=== PATIENT | male | born 1980 | race Caucasian/White ===

== ENCOUNTER 2016-09-29 16:39 | Emergency (ER) | payer OTHER ==
[~2016-09-29] VITALS: Ht 175.3 cm; Wt 95.5 kg
[~2016-09-29 16:39] MED LIST: OXYC1TAB3 PO
[2016-09-29 16:48] VITALS: TEMP 37; Ht 175.3 cm; Wt 95.5 kg
[2016-09-29] MEDS ORDERED: CEPH500C PO (18:17)
--- NOTE | 2016-09-29 18:22 | EMERGENCY ROOM VISIT NOTE ---
History First contact with patient: 18:05 Chief Complaint: KNEEPAIN Stated Complaint: POST-OP 09-23,RT KNEE PAIN History of Present Illness The patient is a 36 year old male who presents to the Emergency Room with complaints of right knee pain and swelling. The patient reports that he underwent arthroscopic knee surgery [address] Worrell. He does not know what was performed during this procedure. The patient reports that he has noticed increasing swelling and pain of the knee. He was not provided crutches , and has been doing a lot of walking as a. He did call [facility] , and was encouraged to wait until Thursday for his regular appointment when sutures are to be removed. The patient was concerned about the swelling and pain, and elected to come to the emergency department instead. He rates his discomfort a 7 out of 10. He denies any fevers or chills. Review of Systems 10 system review was performed and was negative except for pertinent positives and negatives as indicated in history of present illness Past Medical/Surgical History Medical Problems: (1) Knee pain (2) Paronychia (3) Right knee injury Surgical Problems: (1) H/O knee surgery (2) H/O shoulder surgery Family History Diabetes mellitus Gallbladder disease Social History Smoking Status: Never Smoker Alcohol Use: occasionally Drug Use: none Marital Status: Housing Status: lives with family Occupation Status: unemployed Current/Historical Medications Scheduled Cephalexin Monohydrate (Keflex), 500 MG PO TID Scheduled PRN Oxycodone Immediate Rel Tab (Roxicodone Ir), 1 TAB PO QID PRN for Severe Pain Allergies Coded Allergies: No Known Allergies (Verified , 05/04/16) Physical Exam Vital Signs Date Time Temp Pulse Resp B/P Pulse Ox O2 Delivery O2 Flow Rate FiO2 09/29/16 16:48 37.0 102 18 131/86 97 Room Air Physical Exam CONSTITUTIONAL: Healthy and well nourished. Alert and oriented X 3 with positive affect. HEENT: Normocephalic, atraumatic. Pupils equal, round and reactive. NECK: Full active range of motion without discomfort. RESPIRATORY: Clear to auscultation bilaterally with no wheezing, crackles, rhonchi or stridor. CARDIOVASCULAR: Regular rate and rhythm with no murmurs, rubs or gallops. MUSCULOSKELETAL: Examination of the right knee does not show any increased erythema. Mild joint effusion is noted. There is minimal increased warmth to palpation, typical for postoperative presentation. No popliteal masses or tenderness to palpation of the calf or hamstrings. Pedal pulses are intact. INTEGUMENTARY: No rash or other significant dermatologic conditions noted. NEUROLOGIC: No focal neurologic deficits noted. Right lower extremity is sensory intact. Medical Decision & Procedures ED Course Patient history and physical exam were performed. Nurse's notes were reviewed. The patient is currently afebrile. The patient was advised that his exam is consistent with normal postoperative swelling and pain. The patient was dispensed crutches to keep weight off of the leg. He was encouraged to continue with his [place] pain medications that were prescribed by his orthopedic surgeon. And elevation for swelling and pain. I did elect to cover the patient with Keflex antibiotics as well. He was instructed to follow-up with [facility] on Thursday as scheduled, or utilize their walk-in clinic between 5-7 pm. The patient was happy with plan of care, voiced understanding of all discharge instructions, and rated his pain a 5 out of 10 at the time of discharge. Medical Decision Impression Primary Impression: Postoperative pain of right knee Departure Information Dispostion Home / Self-Care Prescriptions Cephalexin Monohydrate (Keflex) 500 Mg Cap 500 MG PO TID for 7 Days, #21 CAP Prov: Mo Bullard PA 09/29/16 Forms HOME CARE DOCUMENTATION FORM, IMPORTANT VISIT INFORMATION Patient Instructions My [facility] [place] [facility] Additional Instructions Intermittently apply ice and elevate the knee for swelling and pain. Use crutches to minimize weight on the leg. Continue with your home pain medications as prescribed by your surgeon. Follow-up with your surgeon on Thursday as scheduled. If you feel that her symptoms are worsening, suggest going to their walk-in clinic between 5 and 7 PM. Complete all Keflex antibiotics as prescribed.
[2016-09-29 18:36] VITALS: BP 125/81; PULSE 93; O2SAT 96
== END 2016-09-29 18:38 | disposition home or self-care (01) ==
LOC: C.EDB 16:39 → C.EDA 18:38
DX: G89.18 Other acute postprocedural pain (principal); M25.561 Pain in right knee; M79.89 Other specified soft tissue disorders; Z98.890 Other specified postprocedural states; Z83.3 Family history of diabetes mellitus; Z83.79 Family history of other diseases of the digestive system

== ENCOUNTER 2018-01-09 10:48 | Emergency (ER) | payer OTHER ==
[~2018-01-09] VITALS: Ht 175.3 cm; Wt 93.4 kg
[2018-01-09 10:51] VITALS: TEMP 36.7; Ht 175.3 cm; Wt 93.4 kg
[2018-01-09] MEDS ORDERED: BENZ100C84 PO (11:35)
--- NOTE | 2018-01-09 11:36 | EMERGENCY ROOM VISIT NOTE ---
History First contact with patient: 11:00 Chief Complaint: FEVER Stated Complaint: FEVER, BAD COUGH History of Present Illness The patient is a 37 year old male who presents to the Emergency Room with complaints of cough for one week. Pt states that his cough is not getting better. He is not taking anything for his cough. His cough is worse in the AM. His daughter was seen in the ER two days ago and got an antibiotic for pneumonia. Pt is a non smoker. No history of asthma. Pt lives an active lifestyle. +Runny nose. No fevers, no nausea, did wake up in a sweat two days ago. Review of Systems See HPI for pertinent positives and negatives. A total of ten systems were reviewed and were otherwise negative. Constitutional: + sweats, No fever, No chills ENT: + sore throat (scratchy not painful), No hearing loss Respiratory: + cough, No sputum, No wheezing, No shortness of breath, No dyspnea on exertion Cardiovascular: No chest pain Abdomen: No pain, No nausea, No vomiting, No diarrhea Genitourinary - Male: No hematuria, No dysuria Neurologic: No memory loss Past Medical/Surgical History Medical Problems: (1) Knee pain (2) Paronychia (3) Right knee injury Surgical Problems: (1) H/O knee surgery (2) H/O shoulder surgery Family History Diabetes mellitus Gallbladder disease Social History Smoking Status: Never Smoker Alcohol Use: occasionally Drug Use: none Marital Status: Housing Status: lives with family Occupation Status: unemployed Physical Exam Vital Signs Date Time Temp Pulse Resp B/P (MAP) Pulse Ox O2 Delivery O2 Flow Rate FiO2 01/09/18 10:51 36.7 100 18 120/74 96 Room Air Physical Exam Gen: No acute distress. HEENT: Head - normocephalic and atraumatic. Pupils are equal, round, and reactive to light. Extraocular eye muscles are intact and sclera are anicteric. Ears - bilaterally patent canals with noninjected tympanic membranes and no evidence of hemotympanum. Left ear canal has moderate amount of wax. Nose - erythematous moist nasal mucosa without discharge. Mouth - moist buccal mucosa. Oropharynx is nonerythematous and there is no tonsillar exudate or edema noted. Neck: Supple; no JVD, nuchal rigidity, cervical lymphadenopathy, or auscultated bruits. Heart: Regular rate and rhythm. There is a normal S1 and S2 with no murmurs, clicks, or gallops appreciated. Lungs: Clear to auscultation bilaterally with no wheezes, rales, or rhonchi. Abdomen: Soft, completely nontender, nondistended, with good bowel sounds. There are no palpable pulsatile masses or hepatosplenomegaly. There is no guarding, rigidity, or rebound noted. Extremities: No evidence of cyanosis, clubbing, or edema. There are easily palpable peripheral pulses. Neuro:The patient is awake and alert, oriented to day, time, and place. Muscle strength is 5/5 in all 4 extremities. The patient has equal shoer strength and equal pedal push and pull. There are no cerebellar signs. Medical Decision & Procedures Medical Decision The patient's care and disposition was discussed with Dr. Leyva, Attending ED Physician. This is a 37M with cough x 1 week. Differential diagnosis include URI, bronchitis, pneumonia, TB, pharyngitis, sinusitis, otitis media among others. Triage Nursing notes were reviewed. ED Course included an extensive history and physical exam. Patient most likely has a viral URI. Pt currently has not taken any meds. Talked about Flonase for rhinorrhea, and Dayquil and Nyquil for cough as well as staying well hydrated. Will give patient Tessalon Pearls for cough. RTC by primary care doc if not better in 3-4 days. The pt was informed about the findings as listed above. All questions were answered. Return instructions were outlined and the patient was discharged in good condition. The patient was referred to PCP for recheck of the current condition. Head Trauma GCS Score: 15 Impression Primary Impression: Viral URI with cough Departure Information Dispostion Home / Self-Care Condition GOOD Prescriptions Benzonatate (Tessalon Perles) 100 Mg Cap 1 CAP PO TID Y for Cough for 10 Days, #30 CAP Prov: Wilder Cline M.D. 01/09/18 Referrals Chris Ruano M.D. (MEDICAL) (PCP) Patient Instructions My [facility] Additional Instructions 1 puff of flonase in each nostril every 12 hours until symptoms go away. Dayquil during the day for cough, Nyquil during the night for cough. Stay well hydrated. Will give a Prescription for Tessalon Pearls. Take as directed. Read information for viral upper respiratory tract infections. Resident Involvement: Resident Care Provided Care Provided: Adult ED
[2018-01-09 12:03] VITALS: BP 137/81; PULSE 70; O2SAT 98
--- NOTE | 2018-01-09 12:53 | EMERGENCY ROOM VISIT NOTE ---
History Report prepared by Kaleb: Sunil Barnard Under the Supervision of: Dr. Nic Durham D.O. First contact with patient: 11:00 Chief Complaint: FEVER Stated Complaint: FEVER, BAD COUGH History of Present Illness The patient is a 37 year old male who presents to the Emergency Room with complaints of a persistent cough for one week. The patient notes that his cough is worse in the morning, and he has not taken anything for the cough. He notes that his daughter was recently diagnosed with pneumonia. The patient states that he has a runny nose, and he denies any fevers or nausea. He does not smoke , and he does not have a history of asthma, and he states that he is usually active. Source of History: patient Onset: on week Position: other (generalized) Quality: other (cough) Timing: other (persistent) Associated Symptoms: No fevers, No nausea Note: Associated symptoms: Runny nose Review of Systems See HPI for pertinent positives & negatives. A total of 10 systems reviewed and were otherwise negative. Past Medical & Surgical Medical Problems: (1) Knee pain (2) Paronychia (3) Right knee injury Surgical Problems: (1) H/O knee surgery (2) H/O shoulder surgery Family History Diabetes mellitus Gallbladder disease Social History Smoking Status: Never Smoker Alcohol Use: occasionally Drug Use: none Marital Status: Housing Status: lives with family Occupation Status: unemployed Current/Historical Medications Scheduled PRN Benzonatate (Tessalon Perles), 1 CAP PO TID PRN for Cough Allergies Coded Allergies: No Known Allergies (Verified , 01/09/18) Physical Exam Vital Signs Date Time Temp Pulse Resp B/P (MAP) Pulse Ox O2 Delivery O2 Flow Rate FiO2 01/09/18 12:03 70 22 137/81 98 01/09/18 10:51 36.7 100 18 120/74 96 Room Air Physical Exam CONSTITUTIONAL/VITAL SIGNS: Reviewed / noted above. GENERAL: Non-toxic in appearance. INTEGUMENTARY: Warm, dry, and [place]. HEAD: Normocephalic. EYES: without scleral icterus or trauma. ENT/OROPHARYNX: clear and moist. LYMPHADENOPATHY/NECK: Is supple without lymphadenopathy or meningismus. RESPIRATORY: Lungs clear and equal. CARDIOVASCULAR: Regular rate and rhythm. GI/ABDOMEN: Soft and nontender. No organomegaly or pulsatile mass. No rebound or guarding. Normal bowel sounds. EXTREMITIES: Warm and well perfused. BACK: No CVA tenderness. NEUROLOGICAL: Intact without focal deficits. PSYCHIATRIC: normal affect. MUSCULOSKELETAL: Normally developed with good muscle tone. Medical Decision & Procedures ED Course 1100: Previous medical records were reviewed. The patient was evaluated in room B12. A complete history and physical examination was performed. 1142: On reevaluation, the patient is doing well. I discussed the results and findings with the patient. He verbalized agreement of the treatment plan. He was discharged home. Medical Decision Differential includes viral illness, influenza, streptococcal pharyngitis, meningitis, pneumonia, sinusitis, UTI, pyelonephritis, otitis media. The patient presents with upper respiratory viral-like syndrome with a cough. He was seen with the resident. His exam was unremarkable. The patient was discharged on Tessalon Perles. Medication Reconcilliation Current Medication List: was personally reviewed by me Blood Pressure Screening Patient's blood pressure: Normal blood pressure Impression Primary Impression: Viral URI with cough Scribe Attestation The scribe's documentation has been prepared under my direction and personally reviewed by me in its entirety. I confirm that the note above accurately reflects all work, treatment, procedures, and medical decision making performed by me. Departure Information Dispostion Home / Self-Care Prescriptions Benzonatate (Tessalon Perles) 100 Mg Cap 1 CAP PO TID Y for Cough for 10 Days, #30 CAP Prov: Wilder Cline M.D. 01/09/18 Referrals Chris Ruano M.D. (MEDICAL) (PCP) Forms HOME CARE DOCUMENTATION FORM, IMPORTANT VISIT INFORMATION Patient Instructions Bronchitis Acute, My [facility] Additional Instructions 1 puff of flonase in each nostril every 12 hours until symptoms go away. Dayquil during the day for cough, Nyquil during the night for cough. Stay well hydrated. Will give a Prescription for Tessalon Pearls - this will be sent to the [facility] on [facility]. Take as directed. Read information for viral upper respiratory tract infections.
== END 2018-01-09 12:04 | disposition home or self-care (01) ==
LOC: C.EDB 10:49
DX: J06.9 Acute upper respiratory infection, unspecified (principal); Z83.3 Family history of diabetes mellitus; Z83.79 Family history of other diseases of the digestive system